=== PATIENT | female | born 1950 | race Caucasian/White ===

== ENCOUNTER 2020-10-07 07:15 | Day surgery (SDC) | payer OTHER, SELFPAY ==
[~2020-10-07] VITALS: Ht 149.9 cm; Wt 63.5 kg
[2020-10-07] MEDS ORDERED: fentaNYL CITRATE/PF 100 MCG/2 ML AMP ONE (07:36)
[2020-10-07] MEDS ORDERED: SIMETHICONE 40 MG/0.6 ML ML ONE (07:36)
[2020-10-07] MEDS ORDERED: MIDAZOLAM HCL 5 MG/5 ML VIAL ONE (07:37)
[2020-10-07] MEDS ORDERED: ATROPINE SULFATE 1 MG/10 ML SYRINGE IVP ONE (09:55)
[2020-10-07 13:05] VITALS: BP_SYST 108
== END 2020-10-07 13:05 | disposition home or self-care (01) ==
LOC: SMU 07:15 → SDS 07:15
PROVIDERS: ATTEND Internal Medicine
DX: K44.9 Diaphragmatic hernia without obstruction or gangrene (principal); D12.2 Benign neoplasm of ascending colon; D12.4 Benign neoplasm of descending colon; K64.8 Other hemorrhoids; D64.9 Anemia, unspecified; R11.0 Nausea; R19.4 Change in bowel habit; K21.9 Gastro-esophageal reflux disease without esophagitis; K56.609 Unspecified intestinal obstruction, unspecified as to partial versus complete obstruction; E11.9 Type 2 diabetes mellitus without complications; I10 Essential (primary) hypertension; E78.5 Hyperlipidemia, unspecified; I25.10 Atherosclerotic heart disease of native coronary artery without angina pectoris; Z86.73 Personal history of transient ischemic attack (TIA), and cerebral infarction without residual deficits; Z86.718 Personal history of other venous thrombosis and embolism; Z79.899 Other long term (current) drug therapy; Z20.822 Contact with and (suspected) exposure to COVID-19
CPT/HCPCS: 43235; 45385; 82962; 88305; 99152; 99153; G0378; J0461; J2250; J3010; J7030; U0003; 45382; 45384

== ENCOUNTER 2023-11-03 07:26 | Day surgery (SDC) | payer OTHER ==
[~2023-11-03] VITALS: Ht 149.9 cm; Wt 59.0 kg
[2023-11-03] MEDS ORDERED: fentaNYL CITRATE/PF 100 MCG/2 ML AMP ONE (09:08)
[2023-11-03] MEDS ORDERED: MIDAZOLAM HCL 5 MG/5 ML VIAL ONE (09:08)
[2023-11-03 13:13] VITALS: O2SAT 99
[2023-11-03 13:17] VITALS: BP_SYST 107; PULSE 58; RESP 17
== END 2023-11-03 09:34 | disposition home or self-care (01) ==
LOC: SDS 07:26 → SMU 07:26 → SDS 09:34
PROVIDERS: ATTEND Internal Medicine
DX: K52.9 Noninfective gastroenteritis and colitis, unspecified (principal); K63.89 Other specified diseases of intestine; K56.609 Unspecified intestinal obstruction, unspecified as to partial versus complete obstruction; K64.8 Other hemorrhoids; I10 Essential (primary) hypertension; E78.5 Hyperlipidemia, unspecified; K21.9 Gastro-esophageal reflux disease without esophagitis; F32.A Depression, unspecified; Z98.51 Tubal ligation status; Z95.818 Presence of other cardiac implants and grafts; Z98.890 Other specified postprocedural states; Z88.8 Allergy status to other drugs, medicaments and biological substances; Z79.899 Other long term (current) drug therapy
CPT/HCPCS: 45380; 82948; 88305; 99152; G0378; J2250; J3010